=== PATIENT | female | born 1980 | race African-American/Black ===

== ENCOUNTER 2020-10-09 12:29 | Emergency (ER) | payer SELFPAY ==
[~2020-10-09] VITALS: Ht 162.6 cm; Wt 98.4 kg
[2020-10-09] MEDS ORDERED: IBUPROFEN IB200 MG PO (13:06)
[2020-10-09] MEDS ORDERED: ACETAMINOPHEN500 MG PO (13:06)
[2020-10-09] MEDS ORDERED: CLEOCIN HCL300 MG PO (13:06)
[2020-10-09] MEDS ORDERED: DOXYCYCLINE HY100 MG PO (13:06)
[2020-10-09] MEDS ORDERED: ACETAMINOPHEN 325 MG TAB PO ONE (13:15)
[2020-10-09] MEDS ORDERED: CLINDAMYCIN PHOS 600 MG/ 4 ML VIAL IM ONE (13:15)
[2020-10-09] MEDS ORDERED: IBUPROFEN 200 MG TAB PO ONE (13:15)
[2020-10-09] MEDS ORDERED: ACETAMINOPHEN 325 MG TAB ONE (13:28)
[2020-10-09] MEDS ORDERED: CLINDAMYCIN PHOS 600 MG/ 4 ML VIAL ONE (13:28)
[2020-10-09] MEDS ORDERED: IBUPROFEN 600 MG TAB ONE (13:28)
== END 2020-10-09 13:40 | disposition home or self-care (01) ==
LOC: FSED 12:37
DX: L03.116 Cellulitis of left lower limb (principal); L02.426 Furuncle of left lower limb; T63.421A Toxic effect of venom of ants, accidental (unintentional), initial encounter
CPT/HCPCS: 96372; 99283